=== PATIENT | female | born 1990 | race Two or more races ===

== ENCOUNTER 2018-09-01 13:05 | Emergency (ER) | payer OTHER, SELFPAY ==
[~2018-09-01] VITALS: Ht 167.6 cm; Wt 84.0 kg
[~2018-09-01 13:05] MED LIST: ONDA8TAB6 PO
[2018-09-01] MEDS ORDERED: LORazepam 2 mg/ml vial IV ONE (13:45)
[2018-09-01] MEDS ORDERED: normal saline 1000ML IV soln IVB ONE (13:45)
[2018-09-01 14:54] LABS: BASOPHILS % (AUTO) 0.6 % (0-1); EOSINOPHILS % (AUTO) 0.2 % (0-6); HEMATOCRIT 34.7 % (35.0-45.0); HEMOGLOBIN 11.6 g/dl (12.0-16.0); LYMPHOCYTES # (AUTO) 1.5 X10'3 (1.1-4.8); LYMPHOCYTES % (AUTO) 19.3 % (21-51); MEAN CORPUSCULAR HEMOGLOBIN 28.4 PG (27.0-31.0); MEAN CORPUSCULAR HGB CONC 33.4 g/dL (33.0-36.5); MEAN CORPUSCULAR VOLUME 85.1 FL (78-98); MONOCYTES # (AUTO) 0.5 X10'3 (0-0.9); MONOCYTES % (AUTO) 6.2 % (2-12); NEUTROPHILS # (AUTO) 5.8 X10'3 (1.8-7.7); NEUTROPHILS % (AUTO) 73.7 % (42-75); PLATELET COUNT 355 X10'3 (140-440); RED BLOOD COUNT 4.08 X10'6 (4.20-5.60); RED CELL DISTRIBUTION WIDTH 14.5 % (11.5-14.5); WHITE BLOOD COUNT 7.9 X10'3 (4.5-11.0)
--- NOTE | 2018-09-01 14:59 | NUR ---
PT MOVED FROM [facility] TO ER12, PIV WAS STARTED AND MEDICATION INFUSING PER JENNIFER GOMEZ
[2018-09-01 15:21] LABS: HCG SERUM QL NEGATIVE
[2018-09-01 15:33] LABS: ALANINE AMINOTRANSFERASE 25 U/L (12-78); ALBUMIN/GLOBULIN RATIO 1.2 (1.1-1.5); ALKALINE PHOSPHATASE 56 IU/L (46-116); ANION GAP 10 (8-16); ASPARTATE AMINO TRANSFERASE 23 U/L (10-37); BILIRUBIN,TOTAL 0.2 MG/DL (0.1-1.0); BLOOD UREA NITROGEN 6 MG/DL (7-18); BUN/CREATININE RATIO 6.5 (6.6-38.0); CALCIUM 9.3 MG/DL (8.5-10.1); CHLORIDE 105 MMOL/L (99-107); CREATININE 0.92 MG/DL (0.40-0.90); GLUCOSE 99 MG/DL (70-104); POTASSIUM 3.8 MMOL/L (3.5-5.1); SODIUM 141 MMOL/L (135-145); TOTAL CARBON DIOXIDE 25.9 MMOL/L (24-32); TOTAL PROTEIN 7.4 G/DL (6.4-8.2); eGFR 72 ML/MIN
[2018-09-01 15:41] LABS: URINE AMPHETAMINE SCREEN NEGATIVE (Neg); URINE BARBITUATE SCREEN NEGATIVE (Neg); URINE BENZODIAZEPINES SCREEN NEGATIVE (Neg); URINE CANNABINOID SCREEN POSITIVE (Neg); URINE COCAINE SCREEN NEGATIVE (Neg); URINE METHADONE SCREEN NEGATIVE (Neg); URINE OPIATE SCREEN NEGATIVE (Neg); URINE PHENCYCLIDINE SCREEN NEGATIVE (Neg)
[2018-09-01 15:43] LABS: ETHANOL < 0.010 GM/DL (0.0-0.010)
[2018-09-01 16:14] VITALS: BP 144/66
== END 2018-09-01 16:16 | disposition home or self-care (01) ==
LOC: ER 13:06
DX: R53.1 Weakness (principal); R11.0 Nausea; J44.9 Chronic obstructive pulmonary disease, unspecified; F12.90 Cannabis use, unspecified, uncomplicated; Z90.49 Acquired absence of other specified parts of digestive tract; Z88.6 Allergy status to analgesic agent; Z88.1 Allergy status to other antibiotic agents; Z88.5 Allergy status to narcotic agent; Z79.899 Other long term (current) drug therapy
CPT/HCPCS: 36415; 80053; 80305; 80320; 84443; 84703; 85025; 96374; 99283; J2060; J7030

== ENCOUNTER 2023-05-15 09:50 | Outpatient (CLI) | payer MEDICAID | END 2023-05-15 23:59 | disposition home or self-care (01) | LOC: RAD 09:50 | PROVIDERS: ATTEND Nurse Practitioner Family | DX: R40.4 Transient alteration of awareness (principal) | CPT/HCPCS: 95819 ==

== ENCOUNTER 2025-05-06 17:11 | Emergency (ER) | payer MEDICAID ==
[~2025-05-06] VITALS: Ht 167.6 cm; Wt 86.2 kg
[2025-05-06 17:14] VITALS: BP 108/57; PULSE 79; RESP 16; TEMP 98.5; O2SAT 99
[2025-05-06 17:46] LABS: MEAN PLATELET VOLUME 6.9 FL (7.4-10.4); RED CELL DISTRIBUTION WIDTH 13.9 % (11.5-14.5)
[2025-05-06 18:02] LABS: CREATININE 0.78 MG/DL (0.40-0.90); TOTAL CARBON DIOXIDE 26.4 MMOL/L (24-32); eCRCL 94 ML/MIN; eGFR 84 ML/MIN
[2025-05-06 18:35] LABS: URINE HCG NEGATIVE (NEG)
[2025-05-06 18:39] LABS: LEUKOCYTE ESTERASE ,URINE NEGATIVE (Neg); NITRITES, URINE NEGATIVE (Neg); OCCULT BLOOD,URINE NEGATIVE (Neg)
[2025-05-06 18:42] LABS: UA COLLECTION TYPE CLN CATCH MIDSTREAM
[2025-05-06] MEDS ORDERED: iohexol 300mg/ml 100ml inj. ONE (19:15)
--- NOTE | 2025-05-06 19:55 | RADIOLOGY REPORT ---
COMPUTERIZED TOMOGRAPHY ABDOMEN AND PELVIS WITH CONTRAST REASON FOR EXAM: sharp, stabbing lower abd pain after picking up heavy bag. Hysterectomy 01/2025. COMPARISON: None TECHNIQUE: The exam was performed on a Multidetector scanner. Spiral scans were acquired from the diaphragm to the symphysis pubis after administration of IV contrast. 2-D coronal and sagittal reformatted images were provided. Radiation optimization: All CT scans at this facility use at least one of these dose optimization techniques: Automated exposure control mA and/or kV adjustment per patient size (includes targeted exams where dose is matched to clinical indication) or iterative reconstruction. CONTRAST ADMINISTRATION: 100 mL omnipaque 300 intravenously RADIATION DOSE: CTDI: 27 mGy DLP: 1243 mGy-cm FINDINGS: The visualized lung bases are clear. There is no pleural effusion. There is no pericardial effusion. The spleen is not enlarged. The liver is normal in size and contour. The portal vein is patent. No calcified gallstone is identified. There is no pericholecystic edema. The pancreas appears grossly normal. The adrenal glands appear normal. The kidneys enhance symmetrically. No solid renal mass is lupe ntified. There is no hydronephrosis of either kidney. There is no abdominal aortic aneurysm. No pathologic lymphadenopathy is identified by size criteria. No free fluid is identified in the abdomen or pelvis. The urinary bladder is distended but appears otherwise unremarkable. The uterus is absent. The left ovary appears normal. The right ovary is not seen. The colonic stool burden is small. The appendix is not seen and is likely absent. There are 2 surgical clips in the right lower quadrant. There is no pathologic distention of the small bowel. No acute osseous abnormality is identified. IMPRESSION: No acute abnormality identified in the abdomen or pelvis. Evidence of prior appendectomy and partial hysterectomy.
--- NOTE | 2025-05-06 20:04 | Physician Documentation ---
History of Present Illness ~ Chief Complaint: Abdominal Pain Stated Complaint: MULTIPLE MEDICAL ISSUES Time Seen by MD: 19:14 OK to notify your PCP?: Yes Source: patient Mode of Arrival: POV Exam Limitations: no limitations HPI Patient reports that she is here for multiple medical complaints. She had a hysterectomy back in January of 2025 and reports that for the last 2-3 weeks she has felt fatigued. She reports that a few days ago she lifted up some groceries and had a sharp pelvic pain. She spoke with her surgeon via telemedicine and was told to come to the ER. She takes oxycodone and gabapentin for pain relief. Denies any pelvic cramping, bleeding, fevers, nausea, vomiting, diarrhea or constipation. Medication Reconciliation Allergies: Coded Allergies: ketorolac (Unverified Allergy, Severe, 01/16/14) levofloxacin (Verified Allergy, Unknown, 01/16/14) morphine (Verified Allergy, Unknown, 01/16/14) Uncoded Allergies: CAMOMILE HIVES, CHARCOAL, CEDAR TREES (Allergy, Intermediate, HIVES, 01/20/13) Scheduled PRN Ondansetron Hcl (Zofran), 8 MG PO Q8HPRN PRN for nausea/vomiting Past Medical History Past Medical History: COPD, *PSYCH*, Anxiety, Panic Disorder Past Surgical History: appendectomy Alcohol Use: None Drug Use: marijuana Occupation: employed Review of Systems All Other Systems at this time: Reviewed and Negative Physical Exam Vital Signs: RN Vital Signs have been reviewed: Yes, Temperature: 98.5, Source: Oral, Heart Rate: 79, Respiratory Rate: 16, BP: 108/57, Pulse Oximetry: 99, Weight: 86.200 Oxygen Flow Rate: 0 Pulse Oximetry Reflects: adequate oxygenation Physical Exam General: Alert, no distress. HEENT: No injection, moist mucous membranes. Neck: Full range of motion. Respiratory: No respiratory distress, equal chest rise and fall. Chest: No accessory muscle use. Cardiovascular: Regular rate and rhythm. Gastrointestinal: Nondistended. Extremities: Normal range of motion, no deformity. Neurologic: Oriented x4. Psychiatric: Normal mood and affect. Skin: Normal color, warm and dry. Progress Results/Orders Reviewed/noted all lab results: Yes Results/Orders Orders - KIKI CARRILLO Ct Abdomen Pelvis (05/06/25 17:21) Completed Orders - KIKI CARRILLO [employer]ISHED [employer]OCK [employer]ERK Ct Abdomen Pelvis (05/06/25 17:21) Urinalysis, Cult If Indicated (05/06/25 17:23) Hcg, Ur Ql (05/06/25 17:23) Cbc/Diff (05/06/25 17:23) Lipase (05/06/25 17:23) CMP (05/06/25 17:23) Iohexol 300mg/Ml 100ml Inj. (Omnipaque-3 (05/06/25 19:15) Vital Signs 05/06/25 05/06/25 17:14 19:32 Temp 98.5 Pulse 79 Resp 16 B/P (MAP) 108/57 Pulse Ox 99 O2 Flow Rate 0 Laboratory Tests Test 05/06/25 17:43 05/06/25 18:22 White Blood Count 6.5 Red Blood Count 4.30 Hemoglobin 13.0 Hematocrit 38.4 Mean Corpuscular Volume 89.3 Mean Corpuscular Hemoglobin 30.1 Mean Corpuscular Hemoglobin Concent 33.8 Red Cell Distribution Width 13.9 Platelet Count 261 Mean Platelet Volume 6.9 L Neutrophils (%) (Auto) 62.7 Lymphocytes (%) (Auto) 30.5 Monocytes (%) (Auto) 4.7 Eosinophils (%) (Auto) 1.6 Basophils (%) (Auto) 0.5 Neutrophils # (Auto) 4.1 Lymphocytes # (Auto) 2.0 Monocytes # (Auto) 0.3 Eosinophils # (Auto) 0.1 Basophils # (Auto) 0.0 CBC Comment Sodium Level 139 Potassium Level 3.8 Chloride Level 104 Carbon Dioxide Level 26.4 Anion Gap 9 Blood Urea Nitrogen 11 Creatinine 0.78 Estimated GFR/1.73 m2 84 BUN/Creatinine Ratio 14.1 Glucose Level 88 Calcium Level 8.8 Total Bilirubin 0.2 Aspartate Amino Transf (AST/SGOT) 18 Alanine Aminotransferase (ALT/SGPT) 17 Alkaline Phosphatase 64 Total Protein 7.7 Albumin 4.1 Globulin 3.6 Albumin/Globulin Ratio 1.1 Lipase 40 Chemistry Comments Urine Specimen Description Cln catch midstream Urine Color Yellow Urine Clarity Clear Urine pH 6.5 Urine Specific [place] <=1.005 Urine Protein Negative Urine Glucose (UA) Negative Urine Ketones Negative Urine Occult Blood Negative Urine Nitrite Negative Urine Bilirubin Negative Urine Urobilinogen 0.2 Urine Leukocyte Esterase Negative Urine Culture Indicated Not ind Volume Urine Centrifuged 10 ml Urine HCG, Qualitative Negative Urine Comment EKG/XRAY/CT/US/VASC/MRI CT : Impression CT scan as interpreted by me; no free air, partial hysterectomy and appendectomy rash, no free fluid. Medical Decision Making Additional information obtaine: old records Findings Physical exam is unremarkable. Her labs are within normal limits and her CT scan shows no acute intra-abdominal abnormality, partial hysterectomy and appendectomy. We discussed that she needs to follow up with her regular pr ovider as well as the surgeon who did her surgery if there is further concern or need for further imaging. We discussed that I do not know the cause of all of her symptoms but we ruled out many life-threatening conditions. Diff Dx GI Bleed:Consideration: Include: Blood loss anemia, Diverticulosis Diff Dx Pain:Considerations: Include: Appendicitis, Cholelithasis, Dysmenorrhea, Ischemic bowel, Ovarian cyst/torsion Diff Dx N/V/D:Considerations: Include: Other Diff Dx Rectal:Considerations: Include: Other Departure Disposition: 01 HOME / SELF CARE / HOMELESS Impression: Primary Impression: Abdominal pain Condition: Stable Discharge Instructions: Abdominal Pain (Nonspecific) Additional Instructions: CT abdomen and pelvis with contrast results show: FINDINGS: The visualized lung bases are clear. There is no pleural effusion. There is no pericardial effusion. The spleen is not enlarged. The liver is normal in size and contour. The portal vein is patent. No calcified gallstone is identified. There is no pericholecystic edema. The pancreas appears grossly normal. The adrenal glands appear normal. The kidneys enhance symmetrically. No solid renal mass is i dentified. There is no hydronephrosis of either kidney. There is no abdominal aortic aneurysm. No pathologic lymphadenopathy is identified by size criteria. No free fluid is identified in the abdomen or pelvis. The urinary bladder is distended but appears otherwise unremarkable. The uterus is absent. The left ovary appears normal. The right ovary is not seen. The colonic stool burden is small. The appendix is not seen and is likely absent. There are 2 surgical clips in the right lower quadrant. There is no pathologic distention of the small bowel. No acute osseous abnormality is identified. IMPRESSION: No acute abnormality identified in the abdomen or pelvis. Evidence of prior appendectomy and partial hysterectomy. Referrals: NO PRIMARY CARE PROVIDER (PCP) Education Educated: Patient Educated regarding: diagnosis, treatment, prognosis, need for follow up Additional Comment Medical Screen Exam This patient recieved a medical screening examination. After reviewing the individual's medical complaints with presenting symptoms and performing an appropriate physical examination, it was determined that no immediate life- threatening emergency medical condition is present. This individual is also not a women having contractions. Signature Scribe Signature: . Attestation: Scribed for Kiki Carrillo [employer]ar[employer] Supervisor by Kiki Aly NP . 05/06/25 21:07 Parts of this note were created using [employer] voice recognition software program. While efforts were made to correct any mistakes made by this voice recognition software program, nonsensical phrases may remain in this note. In addition, there may be errors and syntax, grammar, content and spelling. KIKI CARRILLO [facility] May 06, 2025 20:04
== END 2025-05-06 20:12 | disposition home or self-care (01) ==
LOC: ER 17:13
DX: R10.20 Pelvic and perineal pain unspecified side (principal); J44.9 Chronic obstructive pulmonary disease, unspecified; F41.9 Anxiety disorder, unspecified; F12.90 Cannabis use, unspecified, uncomplicated; Z88.1 Allergy status to other antibiotic agents; Z88.5 Allergy status to narcotic agent; Z88.8 Allergy status to other drugs, medicaments and biological substances; Z90.49 Acquired absence of other specified parts of digestive tract; Z90.711 Acquired absence of uterus with remaining cervical stump
CPT/HCPCS: 36415; 74177; 80053; 81003; 81025; 83690; 85025; 99285; Q9967